=== PATIENT | male | born 1950 | race Caucasian/White ===

== ENCOUNTER 2016-08-18 07:07 | Emergency (ER) | payer BC ==
[2016-08-18 07:15] VITALS: BP 134/79
--- NOTE | 2016-08-18 07:50 | UC ---
Jill Nye Matthew, [facility] on 08/18/16 at 0741 . Throat Pain/Nasal Roberto HPI - HPI Summary HPI Summary: Nurse's Note; pt c/o head and chest congestion with sore throat for the past 1 week. pt states he also has a cough. MD Note; Vital signs stable, afebrile, 98%, 6/10 discomfort, non-smoker, weakly alcohol intake, pervious hip and knee replacement, previous visits non- contributory to present complaint. In Room Note; A 66 y/o male presents to [facility] with a gradually worsening sore throat since a week ago. The pain is rated 6/10 in severity. Associated symptoms include pain w/ swallowing, sinus congestion, chest congestion, constant productive cough, and rhinorrhea. The patient denies chest pain, SOB, nausea, vomiting, diarrhea, fever, and ear pain. SHx: tonsillectomy. The patient has not been hospitalized in the past. The patient was last on an Abx a year ago for similar symptoms. - History of Current Complaint Chief Complaint: UCRespiratory Stated Complaint: SORE THROAT HEAD CONGESTION Time Seen by Provider: 08/18/16 07:14 Hx Obtained From: Patient Onset/Duration: Gradual Onset, Lasting Weeks - 1, Still Present Severity: Moderate Pain Intensity: 6 Pain Scale Used: 0-10 Numeric Cough: Productive Associated Signs & Symptoms: Positive: Dysphagia - mild, Sinus Discomfort, Nasal Discharge, Other - chest congestion. Negative: Fever, Vomiting - Allergies/Home Medications Allergies/Adverse Reactions: Allergies Allergy/AdvReac Type Severity Reaction Status Date / Time No Known Allergies Allergy Verified 02/22/16 08:56 Home Medications: Home Medications Pseudoephedrine-Guaifenesin [Mucinex D 60-600 mg] 08/18/16 [History] PMH/Surg Hx/FS Hx/Imm Hx Endocrine History Of: Denies: Diabetes, Thyroid Disease Cardiovascular History Of: Denies: Cardiac Disorders, Hypertension Respiratory History Of: Denies: COPD, Asthma GI/ History Of: Denies: Ulcer - Surgical History Surgical History: Yes Surgery Procedure, Year, and Place: hip replacement (left); knee replacement ( right) - Family History Known Family History: Positive: Cardiac Disease - Social History Alcohol Use: Weekly Substance Use Type: None Smoking Status (MU): Never Smoked Tobacco Have You Smoked in the Last Year: No Review of Systems Constitutional: Negative Skin: Negative Eyes: Negative ENT: Sore Throat, Nasal Discharge, Other - pain w/ swallowing, sinus congestion , chest congestion Respiratory: Cough - constant productive cough Cardiovascular: Negative Gastrointestinal: Negative Genitourinary: Negative Motor: Negative Neurovascular: Negative Musculoskeletal: Negative Neurological: Negative Psychological: Negative All Other Systems Reviewed And Are Negative: Yes Physical Exam Triage Information Reviewed: Yes Appearance: Well-Appearing, No Pain Distress, Well-Nourished Vital Signs: Initial Vital Signs Temp 96.9 F 08/18/16 07:12 Pulse 66 08/18/16 07:12 Resp 18 08/18/16 07:12 BP 134/79 08/18/16 07:12 Pulse Ox 98 08/18/16 07:12 Vital Signs Reviewed: Yes Eyes: Positive: Conjunctiva Clear ENT: Positive: Hearing grossly normal. Negative: Pharyngeal erythema, Tonsillar exudate, Muffled/hoarse voice Neck: Positive: Supple, No Lymphadenopathy Respiratory: Positive: Chest non-tender, No respiratory distress, Rhonchi - SCATTERED Cardiovascular: Positive: RRR. Negative: No Murmur Abdomen Description: Positive: Nontender, No Organomegaly, Soft Bowel Sounds: Positive: Present Musculoskeletal Exam: Normal Musculoskeletal: Positive: Strength Intact Neurological: Positive: Alert Psychological: Positive: Age Appropriate Behavior Skin: Negative: rashes Throat Pain/Nasal Course/Dx - Course Assessment/Plan: Discussed with the patient a plan about using Abx if he develops increasing cough, fever, or SOB. He will also return if the symptoms dont improve after starting the Abx. - Differential Dx/Diagnosis Differential Diagnosis/HQI/PQRI: Other - Pneumonia vs. bronchitis Provider Diagnoses: Bronchitis Discharge - Discharge Plan Condition: Stable Disposition: HOME Prescriptions: Azithromycin TAB* [Zithromax TAB*] 250 mg PO DAILY #6 tab Azithromycin TAB* [Zithromax TAB*] 250 mg PO DAILY #6 tab Patient Education Materials: Acute Bronchitis (ED) Referrals: No Primary Care Phys,NOPCP [Primary Care Provider] - Additional Instructions: WE DISCUSSED: YOU HAVE BRONCHITIS. PROBABLY VIRAL. WAIT A DAY OR TWO TO START THE ANTIBIOTIC IF YOU DEVELOP INCREASED OR NEW COUGH , TEMPERATURE, CHEST PAIN OR SHORTNESS OF BREATH. FOR COMFORT, TRY THE FOLLOWING: COUGH, CONGESTION of CHEST, SINUSES OR EARS: The most important goal is to liquefy all the phlegm and get it out of your head and chest. Any illness causing cough, congestion, sore throat or sinus discomfort can be helped by doing the following: STAND UNDER SHOWER STREAM TO LOOSEN SECRETIONS. STAY AWAY FROM ANY SMOKE OR IRRITANTS. WHAT ELSE CAN HELP RELIEVE YOUR SYMPTOMS: GENERAL TYPES OF MEDICINE THAT MAY HELP DECONGESTANTS: helps relieve stuffiness and clears sinuses. Pseudoephedrine ( Sudafed or generic) is effective but you need to ask the pharmacist for it because it may be kept behind the counter. ANTIHISTAMINES: are NOT helpful in many colds and flus because they can worsen sore throat, dry eyes and mouth and cause drowsiness. Examples are diphenhydramine, doxylamine and chlorpheniramine. They can help dry you out if you are having profuse, clear drainage from the nose. EXPECTORANTS: helps thin mucous in the nose and chest, making it easier to clear the fluid out. Expectorants are in most combination cough/cold remedies and should be taken with plenty of water. Guaifenesin is the most common expectorant and it comes in pill or liquid form. Mucinex is an extended release form of guaifenesin. COUGH SUPPRESANT: reduces the body's cough reflex. Dextromethorphan is in over the counter products, but sometimes narcotics such as codeine or hydrocodone are used to suppress cough. SPECIFIC MEDICATIONS: The most important goal is to liquefy all the phlegm and get it out of your head and chest: The following medicines (in prescription form or you can buy them without prescription) may help: To help with cough: DEXTROMETHORPHAN (Vicks, Robitussin, Nyquil and other brands) To help break up phlegm: GUAIFENESIN (Mucinex, Robitussin, other brands) To help clear congestion: PSEUDOEPHEDRINE (Sudafed, Dimetapp, other brands) TRY TO CLEAR NOSE: AFRIN NASAL SPRAY: 2-3 SPRAYS PER NOSTRIL, TWICE A DAY FOR TWO DAYS ONLY. USEFUL WAYS TO FEEL BETTER WITHOUT MEDICATIONS: STAND UNDER SHOWER STREAM TO LOOSEN SECRETIONS. USE A VAPORIZOR. STAY AWAY FROM ANY SMOKE OR IRRITANTS. USE SALINE NASAL SPRAY TO KEEP FLOW OF MUCOUS FROM NOSTRILS AND SINUSES. CONSIDER USING NETI POT TO HELP WITH ALLERGIES AND CONGESTION IN THE NOSE. USE THIS THREE TIMES A WEEK. YOU CAN GET THIS AT [facility] IN [place] OR VARIOUS DRUGSTORES. DRINK LOTS OF WARM FLUIDS USEFUL HOME REMEDIES: WARM WATER GARGLES, WITH TSP OF SALT PER 8 OUNCES OF WATER, GARGLE FOR A FEW SECONDS AND SPIT OUT; GARGLE AND SPIT OUT; EVERY THREE HOURS. AND/OR: WARM WATER OR TEA, HONEY AND LEMON; 2-3 CUPS A DAY. FOR SORE THROAT: KEEP THROAT MOIST WITH LOZENGES; TEA AND HONEY. USE WARM WATER GARGLES 3-4 TIMES A DAY. FOLLOW UP: RE-CHECK IN 1O DAYS, NEEDED, IF YOU ARE NOT IMPROVING. RETURN HERE OR SEE YOUR PHYSICIAN. RE-CHECK SOONER IF INCREASED PAIN OR TEMPERATURE. The documentation as recorded by the Jill smith Matthew accurately reflects the service I personally performed and the decisions made by , Mateus De La Cruz MD.
== END 2016-08-18 07:54 | disposition home or self-care (01) ==
LOC: UCEAST 07:07
DX: J40 Bronchitis, not specified as acute or chronic (principal); Z96.642 Presence of left artificial hip joint; Z96.651 Presence of right artificial knee joint
CPT/HCPCS: 99212; G0463

== ENCOUNTER 2017-08-14 13:17 | Emergency (ER) | payer BC ==
[2017-08-14 14:50] VITALS: BP 122/83
--- NOTE | 2017-08-14 14:51 | UC ---
FLU HPI - HPI Summary HPI Summary: Pt presents with headache, dry cough, sinus congestion, and body aches since last night. He is going out of town on Monday and wanted to get checked out. He took some mucinex last night with no relief. Denies fever, chills, SOB, chest pain, abdominal pain, n/v/d/c. - History of Current Complaint Chief Complaint: UCGeneralIllness Stated Complaint: URI Time Seen by Provider: 08/14/17 14:51 Hx Obtained From: Patient Onset/Duration: Sudden Onset Severity Currently: Mild Severity Initially: Mild Pain Intensity: 3 Pain Scale Used: 0-10 Numeric - Allergy/Home Medications Allergies/Adverse Reactions: Allergies Allergy/AdvReac Type Severity Reaction Status Date / Time No Known Allergies Allergy Verified 08/14/17 14:42 Home Medications: Home Medications Acetaminophen [Acetaminophen Extra Strength] 1,000 mg PO 08/14/17 [History] guaiFENesin [Mucinex] 600 mg PO ONCE 08/14/17 [History Confirmed 08/14/17] PMH/Surg Hx/FS Hx/Imm Hx Previously Healthy: Yes - Surgical History Surgical History: Yes Surgery Procedure, Year, and Place: hip replacement (left); knee replacement ( right) - Family History Known Family History: Positive: Cardiac Disease - Social History Occupation: Retired Lives: With Family Alcohol Use: Daily Alcohol Amount: 1 drink/ day Substance Use Type: None Smoking Status (MU): Never Smoked Tobacco Have You Smoked in the Last Year: No Review of Systems Constitutional: Fever, Fatigue, Other - Bodyaches Skin: Negative Eyes: Negative ENT: Sinus Congestion Respiratory: Cough Cardiovascular: Negative Gastrointestinal: Negative Musculoskeletal: Negative Neurological: Negative Psychological: Negative All Other Systems Reviewed And Are Negative: Yes Physical Exam Triage Information Reviewed: Yes Appearance: Well-Appearing, No Pain Distress, Well-Nourished Vital Signs: Initial Vital Signs Temp 99.9 F 08/14/17 14:45 Pulse 69 08/14/17 14:45 Resp 18 08/14/17 14:45 BP 122/83 08/14/17 14:45 Pulse Ox 97 08/14/17 14:45 Vital Signs Reviewed: Yes Eyes: Positive: Conjunctiva Clear. Negative: Conjunctiva Inflamed, Discharge ENT: Positive: Hearing grossly normal, Pharynx normal, TMs normal, Uvula midline. Negative: Pharyngeal erythema, Nasal congestion, Nasal drainage, TM bulging, TM dull, TM red, Tonsillar swelling, Tonsillar exudate, Hoarse voice, Sinus tenderness Neck: Positive: Supple, Nontender, No Lymphadenopathy Respiratory: Positive: Chest non-tender, Lungs clear, Normal breath sounds, No respiratory distress, No accessory muscle use Cardiovascular: Positive: RRR, No Murmur, Pulses Normal Neurological: Positive: Alert Psychological: Positive: Age Appropriate Behavior Skin: Negative: rashes Flu Course/Dx - Course Course Of Treatment: POC flu B positive. Tamiflu. Tessalon and Robitussin AC at bedtime. - Differential Dx/Diagnosis Provider Diagnoses: Influenza B Discharge - Discharge Plan Condition: Stable Disposition: HOME Prescriptions: Benzonatate CAP* [Tessalon 100 MG CAP*] 100 mg PO TID PRN #21 cap PRN Reason: Cough guaiFENesin/CODIEN 100MG-10MG* [Robitussin AC 100Mg-10Mg*] 5 ml PO BEDTIME PRN # 35 ml MDD 5mL PRN Reason: Cough Oseltamivir CAP* [Tamiflu CAP*] 75 mg PO BID #10 cap Patient Education Materials: Influenza (DC) Referrals: No Primary Care Phys,NOPCP [Primary Care Provider] - Additional Instructions: If you develop a fever, shortness of breath, chest pain, new or worsening symptoms - please call your PCP or go to the ED.
== END 2017-08-14 15:32 | disposition home or self-care (01) ==
LOC: UCEAST 13:17
DX: J11.1 Influenza due to unidentified influenza virus with other respiratory manifestations (principal); Z96.642 Presence of left artificial hip joint; Z96.651 Presence of right artificial knee joint
CPT/HCPCS: 87502; 99212; G0463

== ENCOUNTER 2017-08-19 08:53 | Emergency (ER) | payer BC ==
[2017-08-19 09:01] VITALS: BP 137/90
--- NOTE | 2017-08-19 09:14 | UC ---
Ear Complaint HPI - HPI Summary HPI Summary: 67 Y/O male presents S/P treatment for influenza. C/O R ear pain and pressure that has been increasing over the last several days. Denies sinus congestion, fever chills or abdominal pain. Denies nausea or vomiting. Blood pressure elevated without history of HTN, most likely due to current illness. Medication history and medications reviewed at this visit. - History of Current Complaint Stated Complaint: EAR PAIN Hx Obtained From: Patient Onset/Duration: Gradual Onset Severity Initially: Mild Severity Currently: Mild Pain Intensity: 2 Pain Scale Used: 0-10 Numeric Aggravating Factors: Nothing - Allergies/Home Medications Allergies/Adverse Reactions: Allergies Allergy/AdvReac Type Severity Reaction Status Date / Time No Known Allergies Allergy Verified 08/19/17 09:01 PMH/Surg Hx/FS Hx/Imm Hx Previously Healthy: Yes - Surgical History Surgical History: Yes Surgery Procedure, Year, and Place: hip replacement (left); knee replacement ( right) - Family History Known Family History: Positive: Cardiac Disease - Social History Alcohol Use: Daily Alcohol Amount: 1 drink/ day Substance Use Type: None Smoking Status (MU): Never Smoked Tobacco Have You Smoked in the Last Year: No - Immunization History Most Recent Tetanus Shot: UTD Review of Systems Constitutional: Negative Skin: Negative Eyes: Negative ENT: Ear Ache Respiratory: Negative Cardiovascular: Negative Gastrointestinal: Negative Genitourinary: Negative Motor: Negative Neurovascular: Negative Musculoskeletal: Negative Neurological: Negative Psychological: Negative Is Patient Immunocompromised?: No All Other Systems Reviewed And Are Negative: Yes Physical Exam Triage Information Reviewed: Yes Appearance: Well-Appearing Vital Signs: Initial Vital Signs Temp 98.2 F 08/19/17 08:58 Pulse 62 08/19/17 08:58 Resp 20 08/19/17 08:58 BP 137/90 08/19/17 08:58 Pulse Ox 97 08/19/17 08:58 Eye Exam: Normal Eyes: Positive: Conjunctiva Clear ENT Exam: Other ENT: Positive: TM bulging, TM dull, TM red - R side Neck exam: Normal Neck: Positive: Nontender, No Lymphadenopathy Respiratory Exam: Normal Respiratory: Positive: Chest non-tender, Lungs clear, Normal breath sounds Cardiovascular Exam: Normal Cardiovascular: Positive: RRR Abdominal Exam: Normal Bowel Sounds: Positive: Present Musculoskeletal Exam: Normal Neurological Exam: Normal Psychological Exam: Normal Skin Exam: Normal Ear Complaint Course/Dx - Differential Dx/Diagnosis Differential Diagnosis/HQI/PQRI: Otitis Media, URI Provider Diagnoses: Otitis media Discharge - Discharge Plan Condition: Stable Disposition: HOME Patient Education Materials: Ear Infection (ED) Referrals: No Primary Care Phys,NOPCP [Primary Care Provider] - Additional Instructions: Your ear pain and pressure should improve without antibiotics within several days. If symptoms worsen or do not improve over the next several days an antibiotic has been sent to your pharmacy. Please take as directed. Monitor your blood pressure and follow up with your primary care provider if it remains elevated.
== END 2017-08-19 09:40 | disposition home or self-care (01) ==
LOC: UCEAST 08:53
DX: H66.91 Otitis media, unspecified, right ear (principal); Z96.642 Presence of left artificial hip joint; Z96.651 Presence of right artificial knee joint
CPT/HCPCS: 99212; G0463

== ENCOUNTER 2018-06-04 10:12 | Emergency (ER) | payer MEDICARE ==
--- OUTSIDE RECORDS SUMMARY | 2018-06-04 10:18 | XMS REPORT | Continuity of Care Document ---
:1950 External Reference #:[id number] Author Name Frederick Johnson, OD Address [address] [place] [address] Care Team Providers Name Role Phone All Teran M.D. Care Team Information Glass Installer Unavailable Payers Type Date Identification Numbers Payment Provider Subscriber Policy Number: [id number] BS Medicare Star Thurman PayID: [id number] [address] [address] [place] [address] Advance Directives Description No Information Available Problems Date Description Provider Status Onset: 08/12/2016 Vitreous degeneration All Teran M.D. Active Onset: 09/02/2015 Ocular hypertension All Teran M.D. Active Onset: 02/12/2015 Epiretinal membrane All Teran M.D. Active Onset: 02/12/2015 Incipient senile cataract All Teran M.D. Active Onset: 07/17/2014 Open-angle glaucoma All Teran M.D. Active Onset: 04/25/2014 Presbyopia Frederick Velez O.D. Active Onset: 04/25/2014 Regular astigmatism Frederick Velez O.D. Active Onset: 04/25/2014 Myopia Frederick Velez O.D. 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 Active Onset: 12/30/2013 Non-neoplastic nevus All Teran M.D. Active Family History Date Family Member(s) Problem(s) Comments General Cancer General Brother Father Noncontributory Mother Cancer Social History Type Date Description Comments Sex Unknown ETOH Use Currently consumes alcohol Tobacco Use Start: Unknown Patient has never smoked Smoking Status Reviewed: 05/30/18 Patient has never smoked Allergies, Adverse Reactions, Alerts Description No Known Drug Allergies Medications Medication Date Status Form Strength Qnty SIG Indications Ordering Provider Latanoprost Active Solution 0.005% 2.5unit Instill H25.093 All 016 s One Drop Parul, In Each M.D. Eye Every Night Cialis 0 Active Tablets 5mg Unknown 000 Glucosamine Active Capsules Unknown 000 Vitamin B Active Tablets Unknown Complex 000 Zyrtec Allergy Active Capsules 10mg Unknown 000 Latanoprost Hx Solution 0.005% 2.5unit Instill H40.013 All 014 - s One Drop Parul, In Both M.D. 018 Eyes Every Night Immunizations Description No Information Available Vital Signs Date Vital Result Comment 01/18/2018 8:46am Intraocular Pressure Right Eye 17 mmHg Intraocular Pressure Left Eye 17 mmHg 09/07/2017 10:57am Intraocular Pressure Right Eye 17 mmHg Intraocular Pressure Left Eye 17 mmHg 04/17/2017 8:49am Intraocular Pressure Right Eye 17 mmHg Intraocular Pressure Left Eye 17 mmHg 12/12/2016 2:56pm Intraocular Pressure Right Eye 14 mmHg Intraocular Pressure Left Eye 14 mmHg 08/12/2016 8:17am Intraocular Pressure Right Eye 15 mmHg Intraocular Pressure Left Eye 15 mmHg 09/02/2015 3:14pm Intraocular Pressure Right Eye 14 mmHg Intraocular Pressure Left Eye 14 mmHg 02/12/2015 9:33am Intraocular Pressure Right Eye 15 mmHg Intraocular Pressure Left Eye 16 mmHg 10/27/2014 11:42am Intraocular Pressure Right Eye 18 mmHg Intraocular Pressure Left Eye 18 mmHg 07/17/2014 8:49am Intraocular Pressure Right Eye 16 mmHg Intraocular Pressure Left Eye 16 mmHg 04/03/2014 2:18pm Intraocular Pressure Right Eye 16 mmHg Intraocular Pressure Left Eye 16 mmHg 03/13/2014 1:40pm Intraocular Pressure Right Eye 24 mmHg Intraocular Pressure Left Eye 23 mmHg 12/30/2013 9:30am Intraocular Pressure Right Eye 25 mmHg Intraocular Pressure Left Eye 24 mmHg Cornea Thickness Left Eye 500 m Cornea Thickness Right Eye 491 m Pachymetry adjusted IOP Right Eye +3 Pachymetry adjusted IOP Left Eye +4 Results Description No Information Available Procedures Date Code Description Status 01/18/2018 92808 Visual Field Exam Extended, Unilateral Or Bilateral Completed 01/18/2018 79478 Eye Exam Est Intermediate Completed 09/07/2017 96003 Fundus Photography W/Interpretation & Report Completed 09/07/2017 72509 Ophthalmoscopy Subsequent Completed 09/07/2017 01036 Eye Exam Est Intermediate Completed 04/17/2017 32708 Oct, Optic Nerve Completed 04/17/2017 45457 Eye Exam Est Intermediate Completed 12/12/2016 12823 Visual Field Exam Extended, Unilateral Or Bilateral Completed 12/12/2016 34961 Eye Exam Est Intermediate Completed 08/12/2016 26003 Fundus Photography W/Interpretation & Report Completed 08/12/2016 42558 Ophthalmoscopy Subsequent Completed 08/12/2016 90911 Refraction Completed 08/12/2016 26958 Eye Exam Est Comprehensive Completed 09/02/2015 77071 Eye Exam Est Intermediate Completed 09/02/2015 04960 Refraction Completed 09/02/2015 32151 Visual Field Exam Extended, Unilateral Or Bilateral Completed 02/12/2015 58718 Fundus Photography W/Interpretation & Report Completed 02/12/2015 19665 Eye Exam Est Comprehensive Completed 10/27/2014 30133 Eye Exam Est Intermediate Completed 07/17/2014 46629 Oct, Optic Nerve Completed 07/17/2014 58960 Eye Exam Est Intermediate Completed 04/25/2014 88022 Refraction Completed 04/03/2014 46535 Eye Exam Est Intermediate Completed 03/13/2014 85781 Visual Field Exam Extended, Unilateral Or Bilateral Completed 03/13/2014 79738 Eye Exam Est Intermediate Completed 12/30/2013 80167 Fundus Photography W/Interpretation & Report Completed 12/30/2013 34177 Eye Exam Est Comprehensive Completed Encounters Description No Information Available Plan of Treatment 05/30/2018 - Frederick Johnson, ODH40.053 Ocular hypertension, bilateralFollow up:4 mos full, sooner PRN
[2018-06-04 10:20] VITALS: BP 130/85
--- NOTE | 2018-06-04 10:37 | UC ---
Throat Pain/Nasal Roberto HPI - HPI Summary HPI Summary: 68-year-old male comes in to clinic today with a chief complaint of rhinorrhea and sinus pressure which going on for 2 weeks. The rhinorrhea is green. He's got pressure in the frontal sinus area. No sore throat he does have a dry cough. He has been doing saline nasal spray which helped some but overall his symptoms are worsening. No recent fevers. - History of Current Complaint Chief Complaint: UCRespiratory Stated Complaint: SINUS PAIN Time Seen by Provider: 06/04/18 10:21 Pain Intensity: 0 - Allergies/Home Medications Allergies/Adverse Reactions: Allergies Allergy/AdvReac Type Severity Reaction Status Date / Time No Known Allergies Allergy Verified 06/04/18 10:20 PMH/Surg Hx/FS Hx/Imm Hx Previously Healthy: Yes - Surgical History Surgical History: Yes Surgery Procedure, Year, and Place: hip replacement (left); knee replacement ( right) - Family History Known Family History: Positive: Cardiac Disease, Diabetes Family History: DAD - "PHLEBITIS" - Social History Alcohol Use: Daily Alcohol Amount: 1 drink/ day Substance Use Type: None Smoking Status (MU): Never Smoked Tobacco Have You Smoked in the Last Year: No - Immunization History Most Recent Tetanus Shot: UTD Review of Systems All Other Systems Reviewed And Are Negative: Yes Constitutional: Positive: Negative Skin: Positive: Negative Eyes: Positive: Negative ENT: Positive: Sore Throat, Nasal Discharge, Sinus Congestion, Sinus Pain/ Tenderness Respiratory: Positive: Cough Cardiovascular: Positive: Negative Gastrointestinal: Positive: Negative Neurovascular: Positive: Negative Musculoskeletal: Positive: Negative Neurological: Positive: Negative Psychological: Positive: Negative Is Patient Immunocompromised?: No Physical Exam Triage Information Reviewed: Yes Appearance: Well-Appearing, No Pain Distress, Well-Nourished Vital Signs: Initial Vital Signs Temp 98.4 F 06/04/18 10:17 Pulse 60 06/04/18 10:17 Resp 16 06/04/18 10:17 BP 130/85 06/04/18 10:17 Pulse Ox 100 06/04/18 10:17 Vital Signs Reviewed: Yes Eye Exam: Normal Eyes: Positive: Conjunctiva Clear ENT: Positive: Pharyngeal erythema, Nasal congestion, Sinus tenderness Neck exam: Normal Neck: Positive: Supple Respiratory: Positive: Lungs clear, Normal breath sounds, No respiratory distress Cardiovascular: Positive: RRR Musculoskeletal Exam: Normal Musculoskeletal: Positive: Strength Intact, ROM Intact Neurological Exam: Normal Neurological: Positive: Alert, Muscle Tone Normal Psychological Exam: Normal Psychological: Positive: Age Appropriate Behavior Skin Exam: Normal Throat Pain/Nasal Course/Dx - Differential Dx/Diagnosis Provider Diagnosis: Sinusitis Discharge - Sign-Out/Discharge Documenting (check all that apply): Patient Departure All imaging exams completed and their final reports reviewed: No Studies - Discharge Plan Condition: Stable Disposition: HOME Prescriptions: Amoxicillin/Clavulanate TAB* [Augmentin TAB 875*] 875 mg PO BID #20 tab Patient Education Materials: Sinusitis (ED) Referrals: Sidney Carrero MD [Primary Care Provider] - Additional Instructions: FOLLOW UP WITH YOUR DOCTOR IF NOT COMPLETELY IMPROVED. GET RECHECKED FOR ANY WORSENING OF YOUR CONDITION OR QUESTIONS OR CONCERNS. - Billing Disposition and Condition Condition: STABLE Disposition: Home
== END 2018-06-04 10:40 | disposition home or self-care (01) ==
LOC: UCEAST 10:12
DX: J32.9 Chronic sinusitis, unspecified (principal)
CPT/HCPCS: 99212; G0463